=== PATIENT | female | born 1975 | race Caucasian/White ===

== ENCOUNTER 2018-02-24 14:54 | Observation (INO) ==
--- NOTE | 2018-02-24 15:06 | Emergency Department Note ---
Disposition Clinical Impression: Fracture of iliac wing Qualifiers: Encounter type: initial encounter Fracture type: closed Laterality: right Qualified Code(s): S32.301A - Unspecified fracture of right ilium, initial encounter for closed fracture Disposition: Admitted As Inpatient Condition: Fair Lower Extremity Injury HPI - General Chief Complaint: ED Extremity Injury, Lower Stated Complaint: Right hip pain Time Seen by Provider: 02/24/18 14:59 Source: patient Mode of arrival: EMS Limitations: no limitations Nursing Notes Reviewed: No - History of Present Illness HPI Narrative: 42 yo F c PMHx of COPD reports to the ED brought in by EMS c/o sharp R hip pain x 17hrs. Patient report she was attempting to step over the stairs in the basement and her leg went down between the 3rd and 4th steps and she fells over twisting her hip. She reports she was unable to bear weight and her friedn had to carry her to bed. She reports sleeping until a half hour prior to presnetation. She reports being unable to bear weight. She denies hitting her head, LOC, pain in any other joints, head ache, chest pain, abd pain. She denies ETOH and drug abuse. Pt Subjective Complaint: hip injury Injury location: Right hip Onset (ago): hour(s) (15) Mechanism of Injury: eversion, fall Context: fall Worsens with: weight bearing, movement Associated symptoms: Reports: unable to bear weight. Denies: ambulatory, swelling, paresthesias, deformity, weakness - Related Data Home Medications Medication Instructions Recorded Confirmed No Known Home Drugs 02/24/18 02/24/18 Allergies Allergy/AdvReac Type Severity Reaction Status Date / Time No Known Allergies Allergy Verified 02/24/18 17:15 Review of Systems: As Per HPI Physical Exam - General Limitations: no limitations General appearance: alert, in no apparent distress - Head Head exam: atraumatic, normocephalic - Eye Eye exam: Present: PERRL, EOMI - ENT ENT exam: normal oropharynx, mucous membranes moist - Neck Neck exam: Present: full ROM, trachea midline - Chest Chest inspection: Present: symmetric chest wall rise. Absent: tenderness - Respiratory Respiratory exam: Present: other (Coarse breath sounds through out, coughing on takign deep breaths). Absent: respiratory distress - Cardiovascular Cardiovascular exam: Present: regular rate, normal rhythm - Abdominal Exam Abdominal exam: Present: soft, Non-Tender - Expanded Lower Extremity Exam Hip/Pelvis exam: Present: tenderness. Absent: ecchymosis, deformity Upper leg exam: Present: tenderness. Absent: swelling, ecchymosis, deformity Knee exam: Absent: tenderness, swelling Lower leg exam: Present: full ROM. Absent: tenderness, swelling Ankle exam: Present: full ROM. Absent: tenderness, swelling Foot/toe exam: Present: full ROM. Absent: tenderness, swelling Neurovascular/Tendon exam: Present: other (RLE neurovascularly intact). Absent : motor deficit, sensory deficit - Neurological Exam Neurological exam: Present: alert, oriented X3 - Skin Skin exam: Present: warm, dry Course Course Narrative: Patient reporting trauma to R hip last night Will check radiographs of affected area provide pain control. - Reevaluation(s) Reevaluation #1: XR R hip showed "Acute comminuted fracture of the lateral right iliac wing that may extend to the superolateral right acetabulum." Korey check CT of pelvis and consult ortho - Consultations Consultation #1: Consulted Orthopedics. CT beign obtained now. If Fracture involves acetabulum per Ortho patient will need to be transferred to a trauma center for repair. If not involving acetabulum will be non surgical and wants to evaluate it patient is able to ambulate with crutches. Consultation #2: Discussed case with [facility] who agreed to accept that patient. Vital Signs Temperature 99.3 F 02/24/18 14:59 Pulse Rate 97 02/24/18 14:59 Respiratory Rate 16 02/24/18 14:59 Blood Pressure 159/92 02/24/18 14:59 O2 Sat by Pulse Oximetry 94 02/24/18 14:59 Temperature 99.3 F 02/24/18 14:59 Pulse Rate 97 02/24/18 14:59 Respiratory Rate 16 02/24/18 14:59 Blood Pressure 159/92 02/24/18 14:59 O2 Sat by Pulse Oximetry 94 02/24/18 14:59 Oxygen Delivery Oxygen Delivery Room Air Extremity Injury, Lower - MDM Narrative Medical decision making narrative: Concern for Fracture, vs Strain vs. Sprain. Will check imaging and manage pain control. Patient found to have a R Iliac wing fracture. CT scan obtained. Did not involve the acetabulum. Non surgical. Patient will need admission for pain control possible placement for rehab as unable to bear weight. - Radiology Data Radiology results reviewed: Yes I reviewed the patient's radiology results.
[2018-02-24] MEDS ORDERED: *HR* FentaNYL (PF) 100 MCG/2 ML VIAL IVP ONE ×2 (15:51→17:06)
--- NOTE | 2018-02-24 15:57 | Emergency Department Note ---
Disposition Clinical Impression: Fracture of iliac wing Qualifiers: Encounter type: initial encounter Fracture type: closed Laterality: right Qualified Code(s): S32.301A - Unspecified fracture of right ilium, initial encounter for closed fracture Disposition: Admitted As Inpatient Condition: Fair Lower Extremity Injury HPI - General Chief Complaint: ED Extremity Injury, Lower Stated Complaint: Right hip pain Time Seen by Provider: 02/24/18 14:59 Source: patient Mode of arrival: EMS Limitations: no limitations - History of Present Illness Context: fall Worsens with: weight bearing, movement Associated symptoms: Reports: unable to bear weight. Denies: ambulatory, swelling, paresthesias, deformity, weakness - Related Data Home Medications Medication Instructions Recorded Confirmed No Known Home Drugs 02/24/18 02/24/18 Allergies Allergy/AdvReac Type Severity Reaction Status Date / Time No Known Allergies Allergy Verified 02/24/18 17:15 Past Medical History - Past Medical History Medical history: Reports: COPD Psychiatric history: Reports: no psych history - Social History Smoking Status: Current some day smoker Smokeless Tobacco Status: No Alcohol use: Reports: none Drug use: Reports: none Physical Exam - General Limitations: no limitations General appearance: alert, in no apparent distress Course Vital Signs Temperature 99.3 F 02/24/18 14:59 Pulse Rate 97 02/24/18 14:59 Respiratory Rate 16 02/24/18 14:59 Blood Pressure 159/92 02/24/18 14:59 O2 Sat by Pulse Oximetry 94 02/24/18 14:59 Temperature 99.0 F 02/24/18 18:46 Pulse Rate 80 02/24/18 18:46 Respiratory Rate 16 02/24/18 18:46 Blood Pressure 170/92 02/24/18 18:46 O2 Sat by Pulse Oximetry 93 02/24/18 18:46 Oxygen Delivery Oxygen Delivery Room Air Attestation Statement - Attestation Attestation: I, Elver Ovalle, examined this patient and my medical decision-making was reviewed with the COLOR CONTROL SUPERVISOR/PA/Advanced Practice Nurse/Resident Physician. I agree with the documented findings, disposition and treatment plan as described except to the extent set forth below. 42 yo F presents with concerns of R hip pain after a fall yesterday. Patient states she misstepped while going down the stairs, catching her leg between the staircase and the wall and falling backward. Denies hitting her head or having loss of consciousness. She was unable to ambulate after the fall and was carried to a couch where she slept over the next 12 hours. Upon waking she was unable to ambulate and is now present for further evaluation. Patient has pain to range of motion of the right hip. She also has mild pain to palpation of the right knee. X-ray of the right hip and pelvis as well as the CT of the pelvis shows a comminuted right iliac wing without involvement of the sacroiliac joint or the Acetabulum. The orthopedic physician was contacted by the resident, Dr. Paige, who reported that this was a nonoperative fracture and patient is actually able to weight-bear. Patient continues to state that she is unable to ambulate despite pain medication she will be admitted to the hospital for further care and evaluation.
[2018-02-24] MEDS ORDERED: Naloxone 0.4 MG/ML INJ IVP PRN (20:35)
[2018-02-24] MEDS ORDERED: Acetaminophen 325 MG TABLET PO PRN (20:35)
--- NOTE | 2018-02-24 20:49 | Internal Med History&Physical ---
<TroyYasmeengissell - Last Filed: 02/24/18 20:45> Date of Encounter: 02/24/18 Time of Encounter: 20:45 Internal Medicine - H&P: HPI Chief complaint: fall Admitted From: Emergency Dept Plans for Post Hospital Care: Home History of present illness: Ms. Vera is a 42 year old female with past medical history of COPD, history of tobacco use. Patient takes no medications at home. Patient arrived to the emergency department after a fall. She states that she was walking down the stairs and fell because she missed. And landed on her right hip. Since this episode, patient was having 10/10 severe pain in her right hip. Patient denies nausea, vomiting, diarrhea, fever, chills, chest pain, shortness of breath. She denies hematuria, hematochezia, melena, hemoptysis. In the ED, patient received a CT of the pelvis showed acute commuted mildly displaced fracture of the right iliac wing, no involvement of the right sick reality joint or right acetabulum. Orthopedic surgery was called in the ER, and they stated there will be no surgery at this time, and that the patient should be admitted for pain management. X-ray of the right knee showed no acute osseous abnormality. Past Med Surg Social Fam HX - Past Medical History Medical history: COPD Psychiatric history: no psych history - Social History Smoking Status: Current some day smoker Smokeless Tobacco Status: No Alcohol use: none Drug use: none - Family History Mother History Unknown: Yes Internal Medicine - H&P: Meds No Known Home Drugs 02/24/18 [History] 3 Allergy/AdvReac Type Severity Reaction Status Date / Time No Known Allergies Allergy Verified 02/24/18 17:15 All Systems PM: A 10-system review of systems was performed and is negative for pertinent findings except as documented above in the HPI. - Constitutional Vitals: Temp Pulse Resp BP Pulse Ox 99.0 F 80 16 170/92 93 02/24/18 18:46 02/24/18 18:46 02/24/18 18:46 02/24/18 18:46 02/24/18 18:46 General appearance: Present: A&O X 3, pleasant, severe distress, answers questions appropriately Exam: Then, in distress due to pain - Head Head exam: Present: atraumatic, normocephalic - Neck Neck exam general surgery: Present: supple, trachea midline - Respiratory Respiratory exam: Present: decreased breath sounds - Cardiovascular Cardiovascular exam: Present: RRR, +S1, +S3 - GI/Abdominal GI/Abdominal exam: Present: normal bowel sounds, soft. Absent: distended, tenderness - Extremities Exam Extremities exam: Absent: cyanotic, pedal edema Additional comments: Severe tenderness to mild palpation along the right hip area - Skin Skin exam: Present: intact Additional comments: Multiple tattoos present along bilateral arms, chest, bilateral lower extremities. - Assessment and plan (1) Fracture of iliac wing Current Visit: Yes Status: Acute Assessment and plan: Patient arrived to the emergency department after a fall going down the stairs to [address] showed acute comminuted mildly displaced fracture of the right iliac wing, no involvement of the right sacroiliac joint or right acetabulum, large men of the right iliac S muscle with surrounding mild stranding consistent with intramuscular hemorrhage. No discrete hematoma was identified. Right knee x- ray showed no osseous abnormality. Emergency room physicians have contacted orthopedic surgeon concrete mason, who stated that no surgical intervention was indicated at this time. And that the patient should be admitted to the hospital for pain management. Plan: continue with pain management consult to PT/OT conservative measures Qualifiers: Encounter type: initial encounter Fracture type: closed Laterality: right Qualified Code(s): S32.301A - Unspecified fracture of right ilium, initial encounter for closed fracture (2) Tobacco abuse Current Visit: Yes Status: Acute Assessment and plan: Nicotine patch (3) DVT prophylaxis Current Visit: Yes Status: Acute Assessment and plan: Heparin SQ (4) COPD (chronic obstructive pulmonary disease) Current Visit: Yes Status: Acute Assessment and plan: History of COPD, not on home oxygen. Patient continues to smoke currently. She is not on any home medications. Does not appear to be in acute exacerbation. Plan: PRN Duonebs Qualifiers: COPD type: unspecified COPD Qualified Code(s): J44.9 - Chronic obstructive pulmonary disease, unspecified - Time Spent With Patient Total time spent is greater than 50% in coordination of care (as documented) at patient's floor/unit and/or counseling patient: <Harmeet Coleman - Last Filed: 02/24/18 21:29> Date of Encounter: 02/24/18 Internal Medicine - H&P: HPI History of present illness: Ms. Vera is a 42 year old female All Systems PM: A 10-system review of systems was performed and is negative for pertinent findings except as documented above in the HPI. - Constitutional Vitals: Temp Pulse Resp BP Pulse Ox 99.0 F 80 16 170/92 93 02/24/18 18:46 02/24/18 18:46 02/24/18 18:46 02/24/18 18:46 02/24/18 18:46 - Attending Attestation I examined this patient and my medical decision-making was reviewed with the Resident Physician. I agree with the documented findings, disposition and treatment plan as described except to the extent set forth below. will follow recommendations from ortho. - Assessment and plan (1) Fracture of iliac wing Current Visit: Yes Status: Acute Qualifiers: Encounter type: initial encounter Fracture type: closed Laterality: right Qualified Code(s): S32.301A - Unspecified fracture of right ilium, initial encounter for closed fracture (2) Tobacco abuse Current Visit: Yes Status: Acute (3) DVT prophylaxis Current Visit: Yes Status: Acute (4) COPD (chronic obstructive pulmonary disease) Current Visit: Yes Status: Acute Qualifiers: COPD type: unspecified COPD Qualified Code(s): J44.9 - Chronic obstructive pulmonary disease, unspecified - Time Spent With Patient Total time spent is greater than 50% in coordination of care (as documented) at patient's floor/unit and/or counseling patient:
[2018-02-24] MEDS ORDERED: Nicotine 14 MG PATCH.TD24 TD PRN (20:57)
[2018-02-24] MEDS ORDERED: Ipratropium/Albuterol Neb 3 ML IH PRN (21:13)
[2018-02-24] MEDS: *HR* OxyCODONE Immed Rel 5 MG TABLET PO PRN (21:28)
[2018-02-24 21:33] LABS: Basophils % 0.2 %; Eosinophils % 0.2 %; Hematocrit 33.6 % (35.3-44.9); Hemoglobin 10.7 g/dL (11.5-15.4); Immature Granulocytes % 0.2 % (0-4); Lymphocytes # 1.3 K/mcL (0.6-4.6); Lymphocytes % 15.6 %; Mean Corpuscular HGB Conc 31.8 g/dL (31.6-35.5); Mean Corpuscular Hemoglobin 24.8 pg (28.0-33.3); Mean Platelet Volume 10.4 fL (9.4-12.4); Monocytes # 0.7 K/mcL (0.0-1.3); Monocytes % 8.7 %; Neutrophils # 6.1 K/mcL (1.6-8.9); Platelet Count 247 K/mcL (140-400); Red Blood Count 4.31 M/mcL (3.82-4.97); Red Cell Distribution Width 17.1 % (11.5-14.5); Segmented Neutrophils % 75.1 %
[2018-02-24 21:47] LABS: BUN/Creatinine Ratio 14 (6-26); Blood Urea Nitrogen 10 mg/dL (6-20); Calcium 9.3 mg/dL (8.6-10.3); Carbon Dioxide 25 mEq/L (23-29); Chloride 103 mEq/L (98-107); Glucose 184 mg/dL (70-105); Osmolality,Calculated 286 (280-300); Sodium 136 mEq/L (136-145); eGFR For African Americans > 60 (> 60); eGFR For Non-African Americans > 60 (> 60)
[2018-02-24 22:07] LABS: Amphetamine Screen,Urine Negative ng/mL (Cutoff=1000); Barbiturate Screen,Urine Negative ng/mL (Cutoff=200); Benzodiazepines Screen,Urine Negative ng/mL (Cutoff=200); Cannabinoid Screen,Urine Positive ng/mL (Cutoff = 50); Cocaine Screen,Urine Positive ng/mL (Cutoff= 300); Opiate Screen,Urine Positive ng/mL (Cutoff=300); Phencyclidine Screen,Urine Negative ng/mL (Cutoff=25)
[2018-02-24] MEDS ORDERED: *HR* Morphine 2 MG/ML SYRINGE IVP PRN (22:34)
[2018-02-24] MEDS ORDERED: *HR* OxyCODONE Immed Rel 5 MG TABLET PO PRN (22:56)
[2018-02-25 04:58] LABS: Basophils % 0.1 %; Eosinophils % 0.4 %; Hematocrit 35.6 % (35.3-44.9); Hemoglobin 11.2 g/dL (11.5-15.4); Immature Granulocytes % 0.3 % (0-4); Lymphocytes # 1.4 K/mcL (0.6-4.6); Mean Corpuscular HGB Conc 31.5 g/dL (31.6-35.5); Mean Corpuscular Hemoglobin 24.6 pg (28.0-33.3); Mean Corpuscular Volume 78.2 fL (83.0-100.0); Mean Platelet Volume 10.6 fL (9.4-12.4); Monocytes # 0.7 K/mcL (0.0-1.3); Monocytes % 9.3 %; Neutrophils # 5.2 K/mcL (1.6-8.9); Platelet Count 277 K/mcL (140-400); Red Blood Count 4.55 M/mcL (3.82-4.97); Red Cell Distribution Width 17.2 % (11.5-14.5); Segmented Neutrophils % 70.9 %
[2018-02-25 05:08] LABS: BUN/Creatinine Ratio 15 (6-26); Blood Urea Nitrogen 9 mg/dL (6-20); Calcium 9.5 mg/dL (8.6-10.3); Carbon Dioxide 25 mEq/L (23-29); Chloride 102 mEq/L (98-107); Glucose 103 mg/dL (70-105); Osmolality,Calculated 281 (280-300); Phosphorous 2.4 mg/dL (2.7-4.5); Potassium 3.9 mEq/L (3.5-5.1); Sodium 136 mEq/L (136-145); eGFR For African Americans > 60 (> 60); eGFR For Non-African Americans > 60 (> 60)
[2018-02-25 05:22] LABS: Thyroid Stimulating Hormone 0.527 mcIU/mL (0.340-5.600)
[2018-02-25 05:34] LABS: Folate 14.5 ng/mL (3.0-16.0)
[2018-02-25] MEDS: *HR* OxyCODONE Immed Rel 5 MG TABLET PO PRN ×4 (05:45→23:55)
[2018-02-25] MEDS: *HR* Heparin 5,000 UNIT/ML VIAL SQ SCH ×2 (05:47→17:16)
--- NOTE | 2018-02-25 11:05 | Orthopedic Consult Note ---
Date of Encounter: 02/25/18 Time of Encounter: 11:04 Assessment and Plan (1) Fracture of iliac wing Current Visit: Yes Status: Acute The diagnosis and treatment plan were discussed with the patient. We will treat this fracture nonoperatively as there is no intra-articular extension. She may weight-bear as tolerated, will likely need assistive device for walking due to pain. Follow-up with me in office in 3 weeks, will sign off Qualifiers: Encounter type: initial encounter Fracture type: closed Laterality: right Qualified Code(s): S32.301A - Unspecified fracture of right ilium, initial encounter for closed fracture History of Present Illness HPI: Ms. Vera is a 42 year old female who had a fall onto her right side about 36 hours ago. Patient report she was attempting to step over the stairs in the basement and her leg went between the steps and she twisted her hip. Her friend then carried her to bed and she slept for about 12 hours before getting up and having pain in her right side. She reports being unable to bear weight. She denies hitting her head, LOC, pain in any other joints, chest pain, shortness of breath. Past Med Surg Social Fam HX - Past Medical History Medical history: COPD Psychiatric history: no psych history - Social History Smoking Status: Current some day smoker Smokeless Tobacco Status: No Alcohol use: none Drug use: none - Family History Mother History Unknown: Yes Medications and Allergies No Known Home Drugs 02/24/18 [History] 3 Allergy/AdvReac Type Severity Reaction Status Date / Time No Known Allergies Allergy Verified 02/24/18 17:15 All Systems Reviewed: The remainder of the systems were reviewed and are negative Physical Exam - Constitutional Vitals: Temp Pulse Resp BP Pulse Ox 98.8 F 80 17 143/86 94 02/25/18 06:50 02/25/18 06:50 02/25/18 06:50 02/25/18 06:50 02/25/18 06:50 Exam: Consult Exam: Constitutional -Vitals reviewed -The patient is well developed and well nourished. -Mood is pleasant. -The patient is well groomed. Psychiatric -The patient is fully alert and oriented x 3. Respiratory: -Respiratory effort normal Abdomen: -Soft abdomen -Non tender -Non distended: Left upper extremity: -No deformities. The overlying skin is intact. No obvious signs of acute trauma. -No tenderness to palpation throughout. -No significant pain with passive motion of the shoulder, elbow, wrist, and fingers within the limits of the bed. -Able to make an "OK" sign, cross the index and long fingers, and extend the thumb. -Sensation grossly intact to light touch throughout the median, radial, and ulnar distributions. -Radial pulse is present; Fingers have good capillary refill. Right upper extremity: -No deformities. The overlying skin is intact. No obvious signs of acute trauma. -No tenderness to palpation throughout. -No significant pain with passive motion of the shoulder, elbow, wrist, and fingers within the limits of the bed. -Able to make an "OK" sign, cross the index and long fingers, and extend the thumb. -Sensation grossly intact to light touch throughout the median, radial, and ulnar distributions. -Radial pulse is present; Fingers have good capillary refill. Left lower extremity: -No deformities. The overlying skin is intact. No obvious signs of acute trauma. -No tenderness to palpation throughout. -No pain with passive motion of the hip, knee, ankle, and toes within the limits of the bed. -No pain with axial loading of the thigh. -Able to dorsiflex and plantarflex the ankle and toes. -Sensation is grossly intact to light touch throughout the sural, saphenous, superficial peroneal, and deep peroneal distributions. -Toes have good capillary refill. Right lower extremity: -Swelling over the right iliac wing. The overlying skin is intact. Tenderness palpation over the right iliac wing -No pain with passive motion of the knee, ankle, and toes within the limits of the bed. -Pain with motion around the hip -Able to dorsiflex and plantarflex the ankle and toes. -Sensation is grossly intact to light touch throughout the sural, saphenous, superficial peroneal, and deep peroneal distributions. -Toes have good capillary refill. Results - Labs Result Diagrams: 02/25/18 04:10 02/25/18 04:10 Labs: Abnormal lab results Hgb 11.2 g/dL (11.5-15.4) L 02/25/18 04:10 MCV 78.2 fL (83.0-100.0) L 02/25/18 04:10 MCH 24.6 pg (28.0-33.3) L 02/25/18 04:10 MCHC 31.5 g/dL (31.6-35.5) L 02/25/18 04:10 RDW 17.2 % (11.5-14.5) H 02/25/18 04:10 Phosphorus 2.4 mg/dL (2.7-4.5) L 02/25/18 04:10 Iron 26 mcg/dL (50-170) L 02/25/18 04:10 % Saturation 5 % (15-50) L 02/25/18 04:10 Urine Opiates Screen Positive ng/mL (Bilsjf=091) H 02/24/18 21:37 Urine Cocaine Screen Positive ng/mL (Cutoff= 300) H 02/24/18 21:37 U Marijuana (THC) Screen Positive ng/mL (Cutoff = 50) H 02/24/18 21:37 H & H 02/24/18 02/25/18 Range/Units 21:21 04:10 Hgb 10.7 L 11.2 L (11.5-15.4) g/dL Hct 33.6 L 35.6 (35.3-44.9) % All other labs normal. - Diagnostic results Hip x-ray: report reviewed, image reviewed Hip CT: report reviewed, image reviewed (Shows comminuted right iliac wing fracture with intact acetabulum and no fracture of the femoral neck) Consult Discharge Plan - Plan Referrals: NONE,PCP [Primary Care Provider] -
--- NOTE | 2018-02-25 14:55 | Internal Med Progress Note ---
Date of Encounter: 02/25/18 Time of Encounter: 14:53 - Assessment and plan (1) Fracture of iliac wing Current Visit: Yes Status: Acute Assessment and plan: Intractable pain secondary to Right iliac wing comminuted mildly displaced fracture after a fall Patient arrived to the emergency department after a fall going down the stairs to [address] showed acute comminuted mildly displaced fracture of the right iliac wing, no involvement of the right sacroiliac joint or right acetabulum. No discrete hematoma was identified. Right knee x-ray showed no osseous abnormality. Orthopedic surgery recommending no intervention, may bear weight as tolerated. Refused to be evaluated by physical therapy today due to pain, physical therapy team will evaluate the patient apparently on Tuesday Qualifiers: Encounter type: initial encounter Fracture type: closed Laterality: right Qualified Code(s): S32.301A - Unspecified fracture of right ilium, initial encounter for closed fracture (2) Tobacco abuse Current Visit: Yes Status: Acute Assessment and plan: Nicotine patch, smoking cessation counseling (3) DVT prophylaxis Current Visit: Yes Status: Acute Assessment and plan: Heparin SQ (4) COPD (chronic obstructive pulmonary disease) Current Visit: Yes Status: Acute Assessment and plan: History of COPD, not on home oxygen. Does not appear to be in acute exacerbation. PRN Reji Qualifiers: COPD type: unspecified COPD Qualified Code(s): J44.9 - Chronic obstructive pulmonary disease, unspecified (5) Polysubstance abuse Current Visit: Yes Status: Acute Assessment and plan: Urine tox screen showed positive results for opiates, cocaine and marijuana - Time Spent With Patient Total time spent is greater than 50% in coordination of care (as documented) at patient's floor/unit and/or counseling patient: - Subjective Interval history: Complains of 10 out of 10 pain on her right hip, denies any chest or shortness of breath, no abdominal pain diarrhea or dysuria. Appears very disheveled - Constitutional Vitals: Temp Pulse Resp BP Pulse Ox 98.3 F 78 16 148/90 96 02/25/18 11:33 02/25/18 11:33 02/25/18 11:33 02/25/18 11:33 02/25/18 11:33 General appearance: Present: A&O X 3, pleasant, severe distress, answers questions appropriately - Head Head exam: Present: atraumatic, normocephalic - Eye Eye exam: Present: PERRL, conjuntiva pink, sclera anicteric Pupils: Present: PERRL - Neck Neck exam general surgery: Present: supple, trachea midline. Absent: lymphadenopathy - Respiratory Respiratory exam: Present: CTAB. Absent: accessory muscle use, rales, rhonchi, wheezes - Cardiovascular Cardiovascular exam: Present: RRR, +S1, +S2. Absent: diastolic murmur, gallop, rubs, systolic murmur - GI/Abdominal GI/Abdominal exam: Present: normal bowel sounds, soft, no peritoneal signs. Absent: distended, tenderness - Extremities Exam Extremities exam: Present: warm, radial pulses palpable and symmetrical. Absent : calf tenderness, cyanotic, pedal edema - Neurological Exam Neurological exam: Present: CN II-XII intact, oriented X3, no focal deficits. Absent: pronater drift, facial droop, speech deficit - Skin Skin exam: Present: dry, intact Additional comments: Tenderness on the iliac area, unable to have full range of motion on the right hip due to severe pain, no bruising Internal Medicine: Result - Labs CBC & Chem 7: 02/25/18 04:10 02/25/18 04:10 Labs: Short CBC 02/24/18 02/25/18 Range/Units 21:21 04:10 WBC 8.2 7.3 (4.3-11.1) K/mcL Hgb 10.7 L 11.2 L (11.5-15.4) g/dL Hct 33.6 L 35.6 (35.3-44.9) % Plt Count 247 277 (140-400) K/mcL Neutrophils # 6.1 5.2 (1.6-8.9) K/mcL BMP 02/24/18 02/25/18 21:21 04:10 Sodium 136 136 Potassium 4.0 3.9 Chloride 103 102 Carbon Dioxide 25 25 BUN 10 9 Creatinine 0.70 0.61 Glucose 184 H 103 Calcium 9.3 9.5 Cardiac Enzymes 02/24/18 02/24/18 02/25/18 Range/Units 21:21 22:43 04:10 Troponin I Cancelled < 0.03 < 0.03 02/25/18 Range/Units 10:42 Troponin I < 0.03 Consult Discharge Plan - Plan Referrals: NONE,PCP [Primary Care Provider] -
[2018-02-26] MEDS: *HR* OxyCODONE Immed Rel 5 MG TABLET PO PRN ×4 (05:53→23:57)
[2018-02-26] MEDS: *HR* Heparin 5,000 UNIT/ML VIAL SQ SCH ×2 (05:55→17:56)
--- NOTE | 2018-02-26 09:02 | Internal Med Progress Note ---
Date of Encounter: 02/26/18 Time of Encounter: 09:01 - Assessment and plan (1) Fracture of iliac wing Current Visit: Yes Status: Acute Assessment and plan: Intractable pain secondary to Right iliac wing comminuted mildly displaced fracture after a fall Patient arrived to the emergency department after a fall going down the stairs to 2 missing a step. Says she cannot walk Pelvis CT showed acute comminuted mildly displaced fracture of the right iliac wing, no involvement of the right sacroiliac joint or right acetabulum. No discrete hematoma was identified. Right knee x-ray showed no osseous abnormality. Orthopedic surgery recommending no intervention, may bear weight as tolerated. Refused to be evaluated by physical therapy yesterday due to pain, physical therapy team will evaluate the patient either today or tomorrow Qualifiers: Encounter type: initial encounter Fracture type: closed Laterality: right Qualified Code(s): S32.301A - Unspecified fracture of right ilium, initial encounter for closed fracture (2) Tobacco abuse Current Visit: Yes Status: Acute Assessment and plan: Nicotine patch, smoking cessation counseling (3) DVT prophylaxis Current Visit: Yes Status: Acute Assessment and plan: Heparin SQ (4) COPD (chronic obstructive pulmonary disease) Current Visit: Yes Status: Acute Assessment and plan: History of COPD, not on home oxygen. Does not appear to be in acute exacerbation. PRN Reji Qualifiers: COPD type: unspecified COPD Qualified Code(s): J44.9 - Chronic obstructive pulmonary disease, unspecified (5) Polysubstance abuse Current Visit: Yes Status: Acute Assessment and plan: Urine tox screen showed positive results for opiates, cocaine and marijuana - Time Spent With Patient Total time spent is greater than 50% in coordination of care (as documented) at patient's floor/unit and/or counseling patient: - Subjective Interval history: Still complaining of 10 out of 10 pain on her right hip, denies any chest or shortness of breath, no abdominal pain diarrhea or dysuria. Appears very disheveled - Constitutional Vitals: Temp Pulse Resp BP Pulse Ox 98.4 F 85 16 134/88 95 02/26/18 08:00 02/26/18 08:00 02/26/18 08:00 02/26/18 08:00 02/26/18 08:53 General appearance: Present: A&O X 3, pleasant, severe distress, answers questions appropriately Exam: - Head Head exam: Present: atraumatic, normocephalic - Eye Eye exam: Present: PERRL, conjuntiva pink, sclera anicteric Pupils: Present: PERRL - Neck Neck exam general surgery: Present: supple, trachea midline. Absent: lymphadenopathy - Respiratory Respiratory exam: Present: CTAB. Absent: accessory muscle use, rales, rhonchi, wheezes - Cardiovascular Cardiovascular exam: Present: RRR, +S1, +S2. Absent: diastolic murmur, gallop, rubs, systolic murmur - GI/Abdominal GI/Abdominal exam: Present: normal bowel sounds, soft, no peritoneal signs. Absent: distended, tenderness - Extremities Exam Extremities exam: Present: warm, radial pulses palpable and symmetrical. Absent : calf tenderness, cyanotic, pedal edema - Neurological Exam Neurological exam: Present: CN II-XII intact, oriented X3, no focal deficits. Absent: pronater drift, facial droop, speech deficit - Skin Skin exam: Present: dry, intact Additional comments: Tenderness on the iliac area, unable to have full range of motion on the right hip due to severe pain, no bruising Internal Medicine: Result - Labs CBC & Chem 7: 02/25/18 04:10 02/25/18 04:10 Labs: Cardiac Enzymes 02/25/18 Range/Units 10:42 Troponin I < 0.03 (< 0.04) ng/mL Consult Discharge Plan - Plan Referrals: NONE,PCP [Primary Care Provider] -
[2018-02-27] MEDS: *HR* Heparin 5,000 UNIT/ML VIAL SQ SCH (05:59)
[2018-02-27] MEDS: *HR* OxyCODONE Immed Rel 5 MG TABLET PO PRN (06:00)
[2018-02-27 06:40] VITALS: BP 108/82
--- NOTE | 2018-02-27 08:39 | Discharge Summary ---
- NOTES TO OUTPATIENT PROVIDER Notes to Outpatient Provider: Follow up with a Primary care physician in 7 days. May follow up with orthopedic surgery as needed. Quit smoking Date of Encounter: 02/27/18 Time of Encounter: 08:37 - Discharge Diagnosis (1) Fracture of iliac wing Priority: Primary Status: Acute Assessment and Plan: Intractable pain secondary to Right iliac wing comminuted mildly displaced fracture after a fall Qualifiers: Encounter type: initial encounter Fracture type: closed Laterality: right Qualified Code(s): S32.301A - Unspecified fracture of right ilium, initial encounter for closed fracture (2) Tobacco abuse Priority: Secondary Status: Acute (3) COPD (chronic obstructive pulmonary disease) Priority: Secondary Status: Acute Assessment and Plan: History of COPD, not on home oxygen. Does not appear to be in acute exacerbation. PRN [place] Qualifiers: COPD type: unspecified COPD Qualified Code(s): J44.9 - Chronic obstructive pulmonary disease, unspecified (4) Polysubstance abuse Priority: Secondary Status: Acute Assessment and Plan: Urine tox screen showed positive results for opiates, cocaine and marijuana Hospital course: Ms. Vera is a 42 year old female with past medical history of COPD, history of tobacco use and polysubstance abuse. Takes no medications at home. Patient arrived to the emergency department after a fall. She stated that she was walking down the stairs and fell because she missed a step and landed on her right hip. Since this episode, the patient was having 10/10 severe pain in her right hip. Denied nausea, vomiting, diarrhea, fever, chills, chest pain, shortness of breath. She denies hematuria, hematochezia, melena, hemoptysis. In the ED, a Pelvis CT showed acute comminuted mildly displaced fracture of the right iliac wing, no involvement of the right sacroiliac joint or right acetabulum. No discrete hematoma was identified. Orthopedic surgery was called in the ER, and they stated there will be no surgery at this time. Was not able to walk due to the pain. Right knee x-ray showed no osseous abnormality. Orthopedic surgery recommending no intervention, may bear weight as tolerated. Refused to be evaluated by physical therapy on Tuesday , now able to mobilize with a walker Time spent discussing smoking cessation with patient: 3 to 10 minutes - Time Spent with Patient Total time spent providing and/or coordinating discharge services: Greater than 30 minutes (40 min) - Discharge Medications Prescriptions: OxyCODONE Immed Rel [Roxicodone 5 MG] 10 mg PO Q6HR PRN 7 Days #28 tablet PRN Reason: Severe Pain Home Medications: Acetaminophen [Tylenol] 650 mg PO Q6HR PRN tablet 02/27/18 [Rx] OxyCODONE Immed Rel [Roxicodone 5 MG] 10 mg PO Q6HR PRN 7 Days #28 tablet [Rx] Allergies/Adverse Reactions: 3 Allergy/AdvReac Type Severity Reaction Status Date / Time No Known Allergies Allergy Verified 02/24/18 17:15 Date of admission: 02/24/18 17:17 Primary care physician: PCP NONE Consults: 02/24/18 20:42 Consult to Occupational Therapy [CONS] Routine Comment: Evaluate, develop and implement POC Reason for Consult: hip fracture Does patient have active BEDREST order?: No Is patient medically & hemodynamically stable?: Yes Consult to Physical Therapy [CONS] Routine Comment: Evaluate, develop and implement POC Reason for Consult: hip fracture Does patient have active BEDREST order?: No Is patient medically & hemodynamically stable?: Yes 02/24/18 21:07 Consult to Orthopedic Surgery [CONS] Routine Consulting Provider: Piyush Red Reason for Consult: iliac fracture Call Completed: Yes - Constitutional Vitals: Temp Pulse Resp BP Pulse Ox 98.7 F 77 15 108/82 96 02/27/18 06:37 02/27/18 06:37 02/27/18 06:37 02/27/18 06:37 02/27/18 06:37 General appearance: Present: A&O X 3, pleasant, severe distress, answers questions appropriately Exam: Head Head exam: Present: atraumatic, normocephalic - Eye Eye exam: Present: PERRL, conjuntiva pink, sclera anicteric Pupils: Present: PERRL - Neck Neck exam general surgery: Present: supple, trachea midline. Absent: lymphadenopathy - Respiratory Respiratory exam: Present: CTAB. Absent: accessory muscle use, rales, rhonchi, wheezes - Cardiovascular Cardiovascular exam: Present: RRR, +S1, +S2. Absent: diastolic murmur, gallop, rubs, systolic murmur - GI/Abdominal GI/Abdominal exam: Present: normal bowel sounds, soft, no peritoneal signs. Absent: distended, tenderness - Extremities Exam Extremities exam: Present: warm, radial pulses palpable and symmetrical. Absent : calf tenderness, cyanotic, pedal edema - Neurological Exam Neurological exam: Present: CN II-XII intact, oriented X3, no focal deficits. Absent: pronater drift, facial droop, speech deficit - Skin Skin exam: Present: dry, intact Additional comments: Tenderness on the iliac area, diminished range of motion on the right hip due to severe pain, no bruising - Patient Status Disposition: Home Health Service Condition: Fair Overall status at discharge: patient is progressing back to baseline - Discharge Instructions Follow Up With: NONE,PCP [Primary Care Provider] - - Diet and Activity Activity: increase activity as tolerated Diet: low fat, low cholesterol
--- NOTE | 2018-02-27 08:48 | Physician Discharge Referral ---
Home Health/Hosp Referral Info Transfer to: Home Health Provider in Charge Post Discharge: PCP - Diagnosis (1) Fracture of iliac wing Status: Acute (2) Tobacco abuse Status: Acute (3) COPD (chronic obstructive pulmonary disease) Status: Acute (4) Polysubstance abuse Status: Acute - Respiratory Orders Smoking Cessation: Smoking cessation has been advised. For more information, call the [place] Tobacco Quit Line at 8-092-GDVM-NOW. - Diet/Nutrition Diet/Nutrition Orders: Regular - Activity Activity Orders: Walker - Services Needed Following services are medically necessary services: Physical Therapy, Occupational Therapy Home Care Orders: Follow up with a Primary care physician in 7 days. May follow up with orthopedic surgery as needed. Quit smoking - Transfer Medications Prescriptions: OxyCODONE Immed Rel [Roxicodone 5 MG] 10 mg PO Q6HR PRN 7 Days #28 tablet PRN Reason: Severe Pain Home Medications: Acetaminophen [Tylenol] 650 mg PO Q6HR PRN tablet 02/27/18 [Rx] OxyCODONE Immed Rel [Roxicodone 5 MG] 10 mg PO Q6HR PRN 7 Days #28 tablet [Rx] Allergies/Adverse Reactions: 3 Allergy/AdvReac Type Severity Reaction Status Date / Time No Known Allergies Allergy Verified 02/24/18 17:15 Certification: Further, I certify that my clinical findings support that this patient is homebound (i.e. absences from home require considerable and taxing effort and are for medical reasons or [facility] services or infrequently or short duration when for other reasons) because: Homebound Reason: Patient requires assistance of a person or device to safely leave home Attestation: My signature below is to certify that this patient is under my care and that I, or nurse practitioner, or a physician's laboratory chemical assistant working with me, has a face-to -face encounter with this patient.
--- NOTE | 2018-02-27 08:49 | Physician Discharge Referral ---
ExtendedCare Referral Info Provider in Charge after Transfer: PCP Institutional Level of Care: Skilled - Diagnosis (1) Fracture of iliac wing Status: Acute (2) Tobacco abuse Status: Acute (3) COPD (chronic obstructive pulmonary disease) Status: Acute (4) Polysubstance abuse Status: Acute - Transfer Medications Prescriptions: OxyCODONE Immed Rel [Roxicodone 5 MG] 10 mg PO Q6HR PRN 7 Days #28 tablet PRN Reason: Severe Pain Home Medications: Acetaminophen [Tylenol] 650 mg PO Q6HR PRN tablet 02/27/18 [Rx] OxyCODONE Immed Rel [Roxicodone 5 MG] 10 mg PO Q6HR PRN 7 Days #28 tablet [Rx] Allergies/Adverse Reactions: 3 Allergy/AdvReac Type Severity Reaction Status Date / Time No Known Allergies Allergy Verified 02/24/18 17:15 - Respiratory Orders Smoking Cessation: Smoking cessation has been advised. For more information, call the [place] Tobacco Quit Line at 5-001-NJEQ-NOW. - Advance Directives Code Status: Full Code - Rehabiliation Orders Rehab Orders: Evaluation for Physical Therapy Other: Follow up with a Primary care physician in 7 days. May follow up with orthopedic surgery as needed. Quit smoking CERTIFICATION: I certify that the transfer of the above named patient to an Extended Care Facility is necessary for the continuing treatment of the diagnosis listed. The above information is true and accurate reflection of patient's current condition. Confidential - Redisclosure prohibited without a patient's written consent.
== END 2018-02-27 11:15 | disposition home health service (06) ==
LOC: 3NENU 14:54 → EMEROO 14:54 → MERGE 17:17 → 3NENU 18:09
PROVIDERS: ADMIT Nurse Practitioner Family; ATTEND Nurse Practitioner Family

== ENCOUNTER 2020-10-29 12:29 | Inpatient (IN) ==
[2020-10-29] MEDS ORDERED: *HR* LORazepam 2 MG/ML VIAL ONE (12:41)
[2020-10-29] MEDS ORDERED: OLANZapine 10 MG VIAL IM ONE (12:52)
[2020-10-29] MEDS ORDERED: Water for inj. (sterile) 10 ML ONE (13:14)
[2020-10-29 13:19] LABS: Basophils % 0.1 %
[2020-10-29 13:20] LABS: Hematocrit 35.4 % (35.3-44.9); Hemoglobin 9.9 g/dL (11.5-15.4); Immature Granulocytes % 0.3 % (0-4); Lymphocytes # 0.6 K/mcL (0.6-4.6); Lymphocytes % 3.2 %; Mean Corpuscular Hemoglobin 23.2 pg (28.0-33.3); Mean Corpuscular Volume 82.9 fL (83.0-100.0); Mean Platelet Volume 10.2 fL (9.4-12.4); Monocytes # 0.7 K/mcL (0.0-1.3); Monocytes % 3.6 %; Neutrophils # 17.5 K/mcL (1.6-8.9); Platelet Count 405 K/mcL (140-400); Red Blood Count 4.27 M/mcL (3.82-4.97); Red Cell Distribution Width 18.5 % (11.5-14.5); Segmented Neutrophils % 92.8 %; White Blood Count 18.9 K/mcL (4.3-11.1)
[2020-10-29 13:31] LABS: Bilirubin,Urine Negative (Negative); Blood,Urine Moderate (Negative); Clarity,Urine Turbid (Clear); Color,Urine Light-Yellow (Yellow); Glucose,Urine (UA) Normal (Normal); Hyaline Casts,Urine Few per lpf (None Seen); Ketones,Urine Negative (Negative); Leukocyte Esterase,Urine Negative (Negative); Mucus,Urine Few per lpf (None-Few); Nitrite,Urine Negative (Negative); PH,Urine 6.5 pH Units (5.0-8.0); Protein,Urine 200 mg/dL (Neg-Trace); Specific Gravity,Urine 1.011 (1.010-1.025); Squamous Epithelial Cell,Urine Few per hpf (None-Few); Urobilinogen,Urine Normal (Normal); WBC,Urine 15-30 per hpf (0-3)
[2020-10-29 13:38] LABS: Anisocytosis 2+ (Not Present); Hypochromasia Present (Not Present); Platelet Estimate Normal (Normal); Poikilocytosis 1+ (Not Present)
[2020-10-29 13:39] LABS: Amphetamine Screen,Urine Negative ng/mL (Cutoff=1000); Barbiturate Screen,Urine Negative ng/mL (Cutoff=200); Benzodiazepines Screen,Urine Negative ng/mL (Cutoff=200); Cannabinoid Screen,Urine Negative ng/mL (Cutoff = 50); Cocaine Screen,Urine Positive ng/mL (Cutoff= 300); Opiate Screen,Urine Negative ng/mL (Cutoff=300); Phencyclidine Screen,Urine Negative ng/mL (Cutoff=25)
[2020-10-29] MEDS ORDERED: *HR* LORazepam 2 MG/ML VIAL IM ONE (13:53)
[2020-10-29 14:09] LABS: Acetaminophen < 10 mcg/mL (10-20); BUN/Creatinine Ratio 19 (6-26); Blood Urea Nitrogen 22 mg/dL (6-20); Calcium 8.8 mg/dL (8.6-10.3); Carbon Dioxide 21 mEq/L (23-29); Chloride 101 mEq/L (98-107); Chol/HDL Ratio 2.3 (0-4.9); Cholesterol 100 mg/dL (< 200); Creatine Kinase 4516 Units/L (30-223); Ethanol < 10 mg/dL (Less than 10); Glucose 19 mg/dL (70-105); HDL Cholesterol 43 mg/dL (40-59); LDL Cholesterol,Calculated 35 mg/dL (< 100); Osmolality,Calculated 291 (280-300); Potassium 3.6 mEq/L (3.5-5.1); Salicylate < 2.5 mg/dL (15.0-30.0); Sodium 141 mEq/L (136-145); Triglycerides 108 mg/dL (< 150); eGFR For African Americans > 60 (> 60); eGFR For Non-African Americans 51 (> 60)
[2020-10-29] MEDS ORDERED: *HR* Dextrose 50 % in Water (Vial) 50 ML VIAL ONE (14:09)
[2020-10-29] MEDS ORDERED: 0.9 % Sodium Chloride 1,000 ML ONE (14:15)
[2020-10-29] MEDS ORDERED: *HR* Dextrose 50 % in Water (Vial) 50 ML VIAL IVP ONE (14:28)
[2020-10-29] MEDS ORDERED: 0.9 % Sodium Chloride 1,000 ML IVC ONE ×2 (14:29→15:10)
[2020-10-29 14:45] LABS: Estimated Average Glucose 114 mg/dl; Hemoglobin A1C 5.6 %
[2020-10-29 15:26] LABS: Influenza B PCR Negative (Negative); Resp. Syncytial Virus PCR Negative (Negative)
[2020-10-29] MEDS ORDERED: Vancomycin 1,500 MG/265 ML IV.SOLN IVPB ONE (16:58)
[2020-10-29] MEDS ORDERED: levoFLOXacin 750 MG/150 ML 750 MG/150 ML BAG IVPB ONE (16:58)
[2020-10-29] MEDS ORDERED: Naloxone 0.4 MG/ML INJ IVP PRN (17:19)
[2020-10-29 21:11] LABS: Influenza A PCR Negative (Negative); SARS-CoV-2 by PCR (In House) Positive (Negative)
[2020-10-29] MEDS: Ringers Solution, Lactated 1,000 ML IVC SCH (22:54)
[2020-10-30 01:21] LABS: Basophils % 0.1 %
[2020-10-30 01:22] LABS: Hematocrit 34.9 % (35.3-44.9); Immature Granulocytes % 0.1 % (0-4); Lymphocytes # 0.7 K/mcL (0.6-4.6); Mean Corpuscular HGB Conc 28.7 g/dL (31.6-35.5); Mean Corpuscular Hemoglobin 23.5 pg (28.0-33.3); Mean Corpuscular Volume 81.9 fL (83.0-100.0); Mean Platelet Volume 9.8 fL (9.4-12.4); Monocytes # 0.5 K/mcL (0.0-1.3); Monocytes % 3.6 %; Neutrophils # 12.6 K/mcL (1.6-8.9); Platelet Count 288 K/mcL (140-400); Red Blood Count 4.26 M/mcL (3.82-4.97); Red Cell Distribution Width 18.6 % (11.5-14.5); Segmented Neutrophils % 91.2 %; White Blood Count 13.8 K/mcL (4.3-11.1)
[2020-10-30 01:47] LABS: Hypochromasia Present (Not Present); Platelet Estimate Normal (Normal); Toxic Granulation Present (Not Present)
[2020-10-30 01:48] LABS: Reactive Lymphocytes Present (Not Present)
[2020-10-30 02:00] LABS: Alanine Aminotransferase 45 Units/L (7-52); Albumin 2.9 g/dL (3.5-5.7); Albumin/Globulin Ratio 1.1 (1.1-2.2); Alkaline Phosphatase 84 Units/L (34-104); Aspartate Amino Transferase 130 Units/L (13-39); BUN/Creatinine Ratio 24 (6-26); Bilirubin,Direct 0.2 mg/dL (0.0-0.2); Bilirubin,Indirect 0.3 mg/dL (0.0-1.0); Bilirubin,Total 0.5 mg/dL (0.3-1.0); Blood Urea Nitrogen 22 mg/dL (6-20); Calcium 7.6 mg/dL (8.6-10.3); Carbon Dioxide 27 mEq/L (23-29); Chloride 107 mEq/L (98-107); Creatine Kinase 2639 Units/L (30-223); Ferritin 37 ng/mL (10-120); Globulin 2.6 g/dL (2.4-3.5); Glucose 116 mg/dL (70-105); Iron < 10 mcg/dL (50-170); Magnesium 1.8 mg/dL (1.6-2.6); Osmolality,Calculated 304 (280-300); Phosphorous 2.9 mg/dL (2.7-4.5); Potassium 3.3 mEq/L (3.5-5.1); Sodium 145 mEq/L (136-145); Total Protein 5.5 g/dL (6.4-8.9); Transferrin 233 mg/dL (203-362); eGFR For African Americans > 60 (> 60); eGFR For Non-African Americans > 60 (> 60)
[2020-10-30] MEDS: *HR* Enoxaparin 40 MG/0.4 ML SYRINGE SQ SCH (06:02)
[2020-10-30] MEDS: Ringers Solution, Lactated 1,000 ML IVC SCH (06:58)
[2020-10-30] MEDS ORDERED: levoFLOXacin 500 MG/100 ML 500 MG/100 ML BAG IVPB SCH (09:00)
[2020-10-30] MEDS: Dexamethasone 4 MG/ML VIAL IVP SCH (13:47)
[2020-10-31 02:15] LABS: Hematocrit 32.3 % (35.3-44.9); Hemoglobin 9.4 g/dL (11.5-15.4); Mean Corpuscular HGB Conc 29.1 g/dL (31.6-35.5); Mean Corpuscular Hemoglobin 22.9 pg (28.0-33.3); Mean Corpuscular Volume 78.6 fL (83.0-100.0); Mean Platelet Volume 10.2 fL (9.4-12.4); Platelet Count 289 K/mcL (140-400); Red Blood Count 4.11 M/mcL (3.82-4.97); White Blood Count 15.2 K/mcL (4.3-11.1)
[2020-10-31 02:22] LABS: Alanine Aminotransferase 34 Units/L (7-52); Albumin 2.7 g/dL (3.5-5.7); Alkaline Phosphatase 88 Units/L (34-104); Aspartate Amino Transferase 58 Units/L (13-39); BUN/Creatinine Ratio 21 (6-26); Bilirubin,Total 0.4 mg/dL (0.3-1.0); Blood Urea Nitrogen 15 mg/dL (6-20); Calcium 7.7 mg/dL (8.6-10.3); Carbon Dioxide 26 mEq/L (23-29); Chloride 106 mEq/L (98-107); Globulin 2.8 g/dL (2.4-3.5); Glucose 251 mg/dL (70-105); Osmolality,Calculated 299 (280-300); Potassium 3.5 mEq/L (3.5-5.1); Sodium 140 mEq/L (136-145); Total Protein 5.5 g/dL (6.4-8.9); eGFR For African Americans > 60 (> 60); eGFR For Non-African Americans > 60 (> 60)
[2020-10-31] MEDS: *HR* Enoxaparin 40 MG/0.4 ML SYRINGE SQ SCH (03:22)
[2020-10-31] MEDS ORDERED: Perflutren Lipid Microsphere 1.3 ML in 0.9 % Sodium Chloride 8.7 ML IVP PRN (08:25)
[2020-10-31] MEDS: Dexamethasone 4 MG/ML VIAL IVP SCH (08:51)
[2020-10-31] MEDS: Acetaminophen 325 MG TABLET PO PRN (21:51)
[2020-11-01] MEDS: *HR* Enoxaparin 40 MG/0.4 ML SYRINGE SQ SCH (05:16)
[2020-11-01] MEDS: Dexamethasone 4 MG/ML VIAL IVP SCH (08:06)
[2020-11-01 08:26] LABS: Hematocrit 32.8 % (35.3-44.9); Hemoglobin 9.6 g/dL (11.5-15.4); Mean Corpuscular HGB Conc 29.3 g/dL (31.6-35.5); Mean Corpuscular Hemoglobin 22.9 pg (28.0-33.3); Mean Corpuscular Volume 78.3 fL (83.0-100.0); Mean Platelet Volume 9.4 fL (9.4-12.4); Platelet Count 309 K/mcL (140-400); Red Blood Count 4.19 M/mcL (3.82-4.97); Red Cell Distribution Width 18.8 % (11.5-14.5); White Blood Count 15.7 K/mcL (4.3-11.1)
[2020-11-01] MEDS ORDERED: Gadolinium Contrast Agent (WT Based) IV PRN (08:45)
[2020-11-01 08:46] LABS: Alanine Aminotransferase 29 Units/L (7-52); Albumin 3.1 g/dL (3.5-5.7); Alkaline Phosphatase 88 Units/L (34-104); Aspartate Amino Transferase 35 Units/L (13-39); BUN/Creatinine Ratio 21 (6-26); Bilirubin,Total 0.3 mg/dL (0.3-1.0); Blood Urea Nitrogen 12 mg/dL (6-20); Calcium 8.1 mg/dL (8.6-10.3); Carbon Dioxide 32 mEq/L (23-29); Chloride 100 mEq/L (98-107); Globulin 3.1 g/dL (2.4-3.5); Glucose 152 mg/dL (70-105); Osmolality,Calculated 291 (280-300); Sodium 139 mEq/L (136-145); Total Protein 6.2 g/dL (6.4-8.9); eGFR For African Americans > 60 (> 60); eGFR For Non-African Americans > 60 (> 60)
[2020-11-01] MEDS: ceFAZolin 2,000 MG in 0.9 % Sodium Chloride 100 ML IVPB SCH ×2 (09:42→16:51)
[2020-11-01] MEDS ORDERED: *HR* HYDROmorphone (PF) 1 MG/ML SYRINGE IVP ONE (15:39)
[2020-11-01] MEDS ORDERED: *HR* LORazepam 2 MG/ML VIAL IVP ONE (15:40)
[2020-11-02] MEDS: ceFAZolin 2,000 MG in 0.9 % Sodium Chloride 100 ML IVPB SCH ×4 (00:08→23:21)
[2020-11-02] MEDS: *HR* Enoxaparin 40 MG/0.4 ML SYRINGE SQ SCH (05:12)
[2020-11-02 06:33] LABS: Hematocrit 39.9 % (35.3-44.9); Hemoglobin 11.9 g/dL (11.5-15.4); Mean Corpuscular HGB Conc 29.8 g/dL (31.6-35.5); Mean Corpuscular Hemoglobin 22.9 pg (28.0-33.3); Mean Corpuscular Volume 76.9 fL (83.0-100.0); Mean Platelet Volume 10.1 fL (9.4-12.4); Platelet Count 401 K/mcL (140-400); Red Blood Count 5.19 M/mcL (3.82-4.97); Red Cell Distribution Width 18.5 % (11.5-14.5); White Blood Count 19.8 K/mcL (4.3-11.1)
[2020-11-02 06:44] LABS: Alanine Aminotransferase 29 Units/L (7-52); Albumin 3.5 g/dL (3.5-5.7); Albumin/Globulin Ratio 0.9 (1.1-2.2); Alkaline Phosphatase 104 Units/L (34-104); Aspartate Amino Transferase 47 Units/L (13-39); BUN/Creatinine Ratio 22 (6-26); Bilirubin,Total 0.4 mg/dL (0.3-1.0); Blood Urea Nitrogen 15 mg/dL (6-20); Carbon Dioxide 31 mEq/L (23-29); Chloride 97 mEq/L (98-107); Globulin 3.7 g/dL (2.4-3.5); Glucose 101 mg/dL (70-105); Osmolality,Calculated 283 (280-300); Potassium 3.8 mEq/L (3.5-5.1); Sodium 136 mEq/L (136-145); Total Protein 7.2 g/dL (6.4-8.9); eGFR For African Americans > 60 (> 60); eGFR For Non-African Americans > 60 (> 60)
[2020-11-02] MEDS: Dexamethasone 4 MG/ML VIAL IVP SCH (08:45)
[2020-11-02] MEDS ORDERED: Dextrose Gel 15 GM/37.5 ML TUBE PO PRN ×2 (17:12)
[2020-11-02] MEDS ORDERED: *HR* Dextrose 50 % in Water (Vial) 50 ML VIAL IVP PRN (17:12)
[2020-11-02] MEDS ORDERED: D5% in Water 1,000 ML IVC PRN (17:12)
[2020-11-02] MEDS: Insulin LISPRO 300 UNITS/3 ML VIAL SUBQ SCH (17:22)
[2020-11-02] MEDS ORDERED: Insulin DETEMIR 100 UNIT/ML X5UNITS SUBQ SCH (21:00)
[2020-11-02] MEDS ORDERED: Insulin LISPRO 300 UNITS/3 ML VIAL SUBQ SCH (21:00)
[2020-11-02] MEDS: Acetaminophen 325 MG TABLET PO PRN (23:21)
[2020-11-03 02:07] LABS: BUN/Creatinine Ratio 23 (6-26); Blood Urea Nitrogen 16 mg/dL (6-20); Calcium 9.1 mg/dL (8.6-10.3); Carbon Dioxide 29 mEq/L (23-29); Chloride 96 mEq/L (98-107); Glucose 114 mg/dL (70-105); Osmolality,Calculated 284 (280-300); Potassium 4.1 mEq/L (3.5-5.1); Sodium 136 mEq/L (136-145); eGFR For African Americans > 60 (> 60); eGFR For Non-African Americans > 60 (> 60)
[2020-11-03 02:10] LABS: Hematocrit 41.9 % (35.3-44.9); Hemoglobin 12.3 g/dL (11.5-15.4); Mean Corpuscular HGB Conc 29.4 g/dL (31.6-35.5); Mean Corpuscular Hemoglobin 22.1 pg (28.0-33.3); Mean Corpuscular Volume 75.4 fL (83.0-100.0); Mean Platelet Volume 9.7 fL (9.4-12.4); Platelet Count 393 K/mcL (140-400); Red Blood Count 5.56 M/mcL (3.82-4.97); Red Cell Distribution Width 18.5 % (11.5-14.5); White Blood Count 17.5 K/mcL (4.3-11.1)
[2020-11-03] MEDS: *HR* Enoxaparin 40 MG/0.4 ML SYRINGE SQ SCH (03:34)
[2020-11-03] MEDS: Insulin LISPRO 300 UNITS/3 ML VIAL SUBQ SCH ×2 (07:48→12:29)
[2020-11-03] MEDS: ceFAZolin 2,000 MG in 0.9 % Sodium Chloride 100 ML IVPB SCH (08:26)
[2020-11-03] MEDS: Dexamethasone 4 MG/ML VIAL IVP SCH (08:27)
[2020-11-03 11:59] VITALS: BP 141/98
== END 2020-11-03 15:14 | disposition left against medical advice (07) | DRG 720 ==
LOC: EMEROOARM 12:29 → 3BNU 17:02 → INTOOBSV 17:02 → 3BNU 17:45
PROVIDERS: ADMIT Internal Medicine; ATTEND Internal Medicine